=== PATIENT | female | born 1965 | race Caucasian/White ===

== ENCOUNTER 2016-08-02 21:59 | Emergency (ER) | payer SELFPAY ==
[~2016-08-02] VITALS: Ht 160 cm; Wt 49.0 kg
[~2016-08-02 21:59] MED LIST: denies meds/allergies
[2016-08-02 22:17] VITALS: Ht 160 cm; Wt 49.0 kg
[2016-08-02] MEDS ORDERED: IBUPROFEN 600 MG TAB PO ONE (23:00)
[2016-08-02] MEDS ORDERED: ACETAMINOPHEN 325 MG TAB PO ONE (23:00)
--- NOTE | 2016-08-02 23:16 | ERD ---
ER Documentation Chief Complaint Date/Time DATE: 08/02/16 TIME: 23:14 Chief Complaint FLU-LIKE SX, HEADACHE, DIZZINESS X2 DAYS. HPI 50-year-old female presents here in emergency department for complaints of cough , runny nose, nasal congestion, headache, body aches, on and off dizziness for the last 2 days. Patient has been having dry cough, does not cough up any phlegm or blood. Patient does not have any shortness breath or wheezing. Patient has been having runny nose, nasal congestion with clear nasal discharge. Patient does not complain of sore throat or ear pain. Patient also has been having dysuria, burning pain, 4/10 scale, worse upon urination. Patient denies any flank pain. Patient has been having fever, did not take any medications of symptoms ROS All systems reviewed and are negative except as per history of present illness. Medications Home Meds Active Scripts Albuterol Sulfate* (Proair HFA*) 8.5 Gm Hfa.aer.ad, 2 PUFF INH Q4H Y for WHEEZING AND SOB, #1 INHALER Prov:ANH DEE NP 08/03/16 Cetirizine Hcl* (Zyrtec*) 10 Mg Capsule, 10 MG PO DAILY, #30 TAB.CHEW Prov:ANH DEE NP 08/03/16 Ibuprofen* (Motrin*) 600 Mg Tab, 600 MG PO Q6H Y for PAIN AND OR ELEVATED TEMP, #30 TAB Prov:ANH DEE NP 08/03/16 Azithromycin* (Zithromax*) 250 Mg Tablet, 250 MG PO .DilanPACK DIRECTED, #6 TAB TAKE 500 MG (2 TABS) THE FIRST DAY THEN 250 MG (1 TAB) DAYS 2-5 Prov:ANH DEE NP 08/03/16 Guaifenesin-Codeine Phosphate* (Guaifenesin* AC Cough Syrup) 473 Ml Liquid, 10 ML PO Q4H Y for COUGH, #120 ML Prov:ANH DEE NP 08/03/16 Reported Medications [denies meds/allergies] No Conflict Check 03/05/13 Allergies Allergies: Coded Allergies: No Known Allergy (Unverified , 03/05/13) PMhx/Soc Medical and Surgical Hx: pt denies Medical Hx, pt denies Surgical Hx History of Surgery: No Anesthesia Reaction: No Hx Neurological Disorder: No Hx Respiratory Disorders: No Hx Cardiac Disorders: No Hx Psychiatric Problems: No Hx Miscellaneous Medical Probl: Yes (ANEMIA) Hx Alcohol Use: No Hx Substance Use: No Hx Tobacco Use: No Smoking Status: Never smoker FmHx Family History: No coronary disease, No diabetes, No other Physical Exam Vitals Vital Signs Date Time Temp Pulse Resp B/P Pulse Ox O2 Delivery O2 Flow Rate FiO2 08/03/16 04:47 98.2 98 18 104/58 100 Room Air 08/02/16 22:17 102.3 126 16 116/76 100 Physical Exam GENERAL: The patient is well developed and appropriate for usual state of health, in no apparent distress. HEENT: Atraumatic. Ears: Normal tympanic membrane, no erythema or bulging. No ear canal swelling. No ear discharge. Nose: Erythematous nasal turbinates with clear nasal disposition. Throat: oropharynx erythematous with postnasal drip. No tonsillar swelling or tonsillar exudates. No lymphadenopathy. CHEST: Clear to auscultation bilaterally. There are no rales, wheezes or rhonchi. HEART: Regular rate and rhythm. No murmurs, clicks, rubs or gallops. No S3 or S4. ABDOMEN: Soft, nontender and nondistended. Good bowel sounds. No rebound or guarding. No gross peritonitis. No gross organomegaly or masses. No Hollis sign or McBurney point tenderness. BACK: No midline or flank tenderness. EXTREMITIES: Equal pulses bilaterally. There is no peripheral clubbing, cyanosis or edema. No focal swelling or erythema. Full range of motion. Grossly neurovascularly intact. NEURO: Alert and oriented. Cranial nerves 2-12 intact. Motor strength in all 4 extremities with 5/5 strength. Sensation grossly intact. Normal speech and gait. SKIN: There is no apparent rash or petechia. The skin is warm and dry. HEMATOLOGIC AND LYMPHATIC: There is no evidence of excessive bruising or lymphedema. No gross cervical, axillary, or inguinal lymphadenopathy. Results 24 hrs Laboratory Tests Test 08/02/16 23:54 Bedside Urine Blood Negative Bedside Urine Glucose (UA) Negative Bedside Urine Ketones (LAB) 2+ Bedside Urine Leukocyte Esterase (L Negative Bedside Urine Nitrite (LAB) Negative Bedside Urine Protein (LAB) 1+ Bedside Urine pH (LAB) 8.5 Current Medications Medications (Trade) Dose Ordered Sig/Tremaine Route PRN Reason Start Time Stop Time Status Last Admin Dose Admin Acetaminophen (Tylenol Tab) 650 mg ONCE ONCE PO 08/02/16 23:00 2 23:01 DC 08/02/16 23:40 Ibuprofen (Motrin) 600 mg ONCE ONCE PO 08/02/16 23:00 08/02/16 23:01 DC 08/02/16 23:40 Patient was given medicines for fever control here in the emergency department. After treatment, patient temperature improved and lower. Patient appears well and is hemodynamically stable. Microbiology INFLUENZA A & B BY EIA Final INFLU A&B BY EIA INFLUENZA A NEGATIVE (Ref Range Neg) INFLUENZA B NEGATIVE (Ref Range Neg) PROCEDURE: CT Chest without contrast. CLINICAL INDICATION: Cough and fever TECHNIQUE: Spiral CT images through the chest without contrast. Coronal and sagittal reformatted images were obtained from the axial source images. The total exam CTDI equals 3.35 mGy and the total exam DLP equals 121.6 mGy-cm. One or more of the following dose reduction techniques were used: automated exposure control, adjustment of the mA and/or kV according to patient size, or use of iterative reconstruction technique. COMPARISON: Chest x-ray from today FINDINGS: Slight biapical pleural thickening and scarring. 2 mm noncalcified nodule laterally in the right upper lobe on image 44. No cavitary lesion of the right lung is present. This was likely artifactual. There is, however, heterogeneous alveolar infiltrate in the posterior segment of the left lower lobe. No pleural or pericardial effusion is seen. No hilar or mediastinal adenopathy is seen. Limited imaging of the upper abdomen is unremarkable. No bony lesion is seen. IMPRESSION: Left lower lobe infiltrate, presumed bacterial infection. 2 mm right upper lobe lung nodule. RPTAT: [facility] Physician Jesse Date Time Electronically viewed and signed by Camila Mckee Physician on 08/03/2016 04 :20 Procedures/MDM Medical Decision Making: Patient symptoms are most likely consistent with pneumonia as seen in the CT scan and x-ray. Outpatient management is appropriate at this time since patient O2 saturation is normal and patient doesnt show any respiratory distress. Patients chest xray doesnt show infiltrates or any other cardiopulmonary emergencies at this time. There is low suspicion for other cardiopulmonary emergencies at this time such as CHF, Pulmonary Embolism, Pneumothorax, Aortic Aneurysm or any other cardiopulmonary emergencies at this time. There is low suspicion for sepsis. Patient appears well and is hemodynamically stable. Fever is controlled with medicines. Disposition: Home. Condition: Stable Prescriptions: Azithromycin, guaifenesin with codeine, Zyrtec, albuterol Instructions: Patient is advised to take medications as prescribed. Patient is advised to rest. Patient advised to increase fluid intake, do humidifier at home and if possible, do salt water gargles. Patient is advised that if symptoms are worse, shortness of breath, uncontrolled fever, stridor, vomiting, worst signs and symptoms to return to emergency department immediately. Otherwise, patient is advised to follow up with primary doctor in 5-7 days. Patient was advised to follow-up with primary care doctor regarding incidental finding of a pulmonary nodule. Repeat CT scan in 6-12 months. Departure Diagnosis: Primary Impression: Pneumonia Pneumonia type: due to unspecified organism Laterality: left Lung location : lower lobe of lung Qualified Code: J18.9 - Pneumonia of left lower lobe due to infectious organism Additional Impression: Lung nodule Condition: Stable Patient Instructions: Pneumonia (Adult), Pulmonary Nodule, Solitary Additional Instructions: Patient is advised to take medications as prescribed. Patient is advised to rest. Patient advised to increase fluid intake, do humidifier at home and if possible, do salt water gargles. Patient is advised that if symptoms are worse, shortness of breath, uncontrolled fever, stridor, vomiting, worst signs and symptoms to return to emergency department immediately. Otherwise, patient is advised to follow up with primary doctor in 5-7 days. Patient was advised to follow-up with primary care doctor regarding incidental finding of a pulmonary nodule. Repeat CT scan in 6-12 months. ANH DEE NP Aug 02, 2016 23:16
[2016-08-02 23:52] LABS: URINE BLOOD (Dip) POC Negative (NEGATIVE)
--- NOTE | 2016-08-03 02:02 | RADRPT ---
PROCEDURE: CHEST - 1 VIEW CLINICAL INDICATION: 50-year-old female with cough and fever. TECHNIQUE: A single frontal AP view of the chest was performed portably. The images were reviewed on a PACS workstation. COMPARISON: None. FINDINGS: The cardiomediastinal silhouette is within normal limits. The lung apices are incompletely visualiz ed. There are thin-walled cystic foci within the right perihilar/mid lung zone region measuring 3.7 x 2.6 cm and 2.6 x 2.4 cm. There is no evidence for focal consolidation. There is no evidence for congestive heart failure. There is no evidence for pneumothorax. The osseous structures are intact. IMPRESSION: Right perihilar/mid lung zone thin-walled cystic foci. Etiologies include bulla, cavitary lesions, pneumatoceles. Further evaluation with CT imaging is suggested. .Yvon Draper MD, Date Time Electronically viewed and signed by .Yvon Draper MD, on 08/03/2016 02:01 .Janette/
--- NOTE | 2016-08-03 04:21 | RADRPT ---
PROCEDURE: CT Chest without contrast. CLINICAL INDICATION: Cough and fever TECHNIQUE: Spiral CT images through the chest without contrast. Coronal and sagittal reformatted images were obtained from the axial source images. The total exam CTDI equals 3.35 mGy and the total exam DLP equals 121.6 mGy-cm. One or more of the following dose reduction techniques were used: aut omated exposure control, adjustment of the mA and/or kV according to patient size, or use of iterati ve reconstruction technique. COMPARISON: Chest x-ray from today FINDINGS: Slight biapical pleural thickening and scarring. 2 mm noncalcified nodule laterally in the right up per lobe on image 44. No cavitary lesion of the right lung is present. This was likely artifactual . There is, however, heterogeneous alveolar infiltrate in the posterior segment of the left lower l obe. No pleural or pericardial effusion is seen. No hilar or mediastinal adenopathy is seen. Limi marisa imaging of the upper abdomen is unremarkable. No bony lesion is seen. IMPRESSION: Left lower lobe infiltrate, presumed bacterial infection. 2 mm right upper lobe lung nodule. RPTAT: [facility] Physician Jesse Date Time Electronically viewed and signed by Physician Jesse on 08/03/2016 04:20 SASKIA/
[2016-08-03] MEDS ORDERED: IBUP-1542 PO (04:34)
[2016-08-03] MEDS ORDERED: AZIT250T94 PO (04:34)
[2016-08-03] MEDS ORDERED: CETI10CA PO (04:34)
[2016-08-03] MEDS ORDERED: ALBU8.5H3 INH (04:34)
[2016-08-03] MEDS ORDERED: GUAI473L22 PO (04:34)
[2016-08-03 04:47] VITALS: BP 104/58; PULSE 98; RESP 18; TEMP 98.2
== END 2016-08-03 04:47 | disposition home or self-care (01) ==
LOC: FTE 21:59
DX: J18.9 Pneumonia, unspecified organism (principal); R91.1 Solitary pulmonary nodule
CPT/HCPCS: 71010; 71250; 81003; 87400